=== PATIENT | female | born 1960 | race African-American/Black ===

== ENCOUNTER 2022-08-04 04:39 | Emergency (ER) | payer BC ==
[2022-08-04] VITALS (15 sets, daily range): BP systolic 158–223; BP diastolic 74–116
[2022-08-04 05:12] LABS: HEMATOCRIT 40.8 % (37.0-47.0); IMMATURE GRANULOCYTES 0.2 % (0.0-5.0); MEAN CELL VOLUME 80.3 fL CALC (80.0-100.0); MEAN CORPUSCULAR HGB 25.6 pG CALC (26.0-32.0); MEAN CORPUSCULAR HGB CONC 31.9 g/dL CAL (32.0-36.0); NEUT# 3.47 thou/uL (2.00-7.15); RED BLOOD COUNT 5.08 mill/uL (4.20-5.60); RED CELL DISTRI WIDTH 12.6 % (11.5-15.5)
[2022-08-04 05:14] LABS: URINE BILIRUBIN - DIPSTICK NEGATIVE (NEGATIVE); URINE BLOOD DIPSTICK NEGATIVE (NEGATIVE); URINE COLOR YELLOW; URINE GLUCOSE - DIPSTICK >=1000 mg/dL (NEGATIVE); URINE KETONE NEGATIVE (NEGATIVE); URINE LEUK ESTERASE NEGATIVE (NEGATIVE); URINE PH 7.5 (4.5-8.0); URINE PROTEIN - DIPSTICK NEGATIVE (NEG-TRACE); URINE SPECIFIC GRAVITY 1.015; URINE UROBILINOGEN - DIPSTICK 0.2 E.U./dL (0.2)
[2022-08-04 05:16] LABS: URINE NITRITE - DIPSTICK NEGATIVE (Negative)
[2022-08-04 05:32] LABS: ALBUMIN 4.2 g/dL (3.2-5.0); ALKALINE PHOSPHATASE 125 u/l (38-126); AMYLASE 80 u/l (30-110); ANION GAP 11 (6-22 (CALC)); BILIRUBIN, TOTAL 1.1 mg/dL (0.0-1.4); BUN 11 mg/dL (8-23); BUN/CREATININE RATIO 21 (12-20 (CALC)); CARBON DIOXIDE 28 mmol/l (22-30); CHLORIDE 102 mmol/l (95-108); CREATININE 0.5 mg/dL (0.5-1.0); GFR FOR AFR.AMER. > 60 ML/MIN (>=60 (CALC)); GFR OTHER RACES > 60 ML/MIN (>=60 (CALC)); LIPASE 40 u/l (23-300); POTASSIUM 3.8 mmol/l (3.5-5.1); SGOT/AST 29 u/l (9-36); SODIUM 136 mmol/l (137-146); TOTAL PROTEIN 7.3 g/dL (6.3-8.2)
[2022-08-04 05:40] LABS: MYOGLOBIN 43 ng/mL (0 - 62)
[2022-08-04] MEDS ORDERED: DIFLUCAN150 MG PO (07:26)
[2022-08-04] MEDS ORDERED: ENALAPRIL10 MG PO (07:48)
[2022-08-04] MEDS ORDERED: NORVASC10 M1 PO (07:48)
[2022-08-04] MEDS ORDERED: CLONIDINE0.1 MG PO (07:49)
[2022-08-04] MEDS ORDERED: PERCOCET 10/31 COMBO PO (07:49)
== END 2022-08-04 08:18 | disposition home or self-care (01) | DRG 392 ==
LOC: ED 04:39
PROVIDERS: Emergency Medicine
DX: R10.11 Right upper quadrant pain (principal); R07.89 Other chest pain; N89.8 Other specified noninflammatory disorders of vagina; M54.30 Sciatica, unspecified side; Z79.891 Long term (current) use of opiate analgesic
CPT/HCPCS: Q9967